=== PATIENT | male | born 1955 | race Caucasian/White ===

== ENCOUNTER 2017-01-19 02:43 | Emergency (ER) | payer MEDICARE ==
[~2017-01-19] VITALS: Ht 210.8 cm; Wt 118.2 kg
[~2017-01-19 02:43] MED LIST: ALLOPURINOL100 MG PO; ATENOLOL25 MG PO; CEFTIN500 MG PO; CLONAZEPAM1 MG PO; COUMADIN5 MG PO; DIGOXIN0.25 MG PO; DOXYCYC MONO100 M1 PO; FLEXERIL OR; IPRATROPIU0.5 MG/3 M NEB; KEFLEX500 MG PO; LEVAQUIN750 MG PO; MEDDOSEPAK PO; METHADONE10 M1 PO; METHADOSE10 M1 PO; METO25TAB PO; METO50TA52 PO; NEBULIZE1 IN; NORCO1 TAB PO; PENICILLN VK500 MG PO; PREDNISONE10 MG PO; ULTRAM50 M1 PO; ZOLOFT50 MG PO
[2017-01-19] MEDS ORDERED: PLAVIX75 MG PO (03:02)
[2017-01-19] MEDS ORDERED: KEFLEX500 MG PO (03:02)
[2017-01-19] MEDS ORDERED: WARFARIN SODIU2.5 MG PO (03:02)
[2017-01-19] MEDS ORDERED: VITAMI16 PO (03:04)
[2017-01-19] MEDS ORDERED: B COMPLETE PO (03:05)
[2017-01-19] MEDS ORDERED: MAGNESIUM500 MG PO (03:05)
[2017-01-19] MEDS ORDERED: PRENATAL1 TA1 PO (03:06)
[2017-01-19] MEDS ORDERED: PERCOCET1 TA4 PO (03:07)
[2017-01-19 04:08] LABS: HEMATOCRIT 33.1 % (39.0-50.0); HEMOGLOBIN 10.1 g/dl (14.0-18.0); IMMATURE GRANULOCYTES 1.4 % (0.0-1.0); MEAN CELL VOLUME 86.6 fL CALC (80.0-100.0); MEAN CORPUSCULAR HGB 26.4 pG CALC (26.0-32.0); MEAN CORPUSCULAR HGB CONC 30.5 g/L CALC (32.0-36.0); NEUT# 7.65 thou/uL (1.82-7.42); RED BLOOD COUNT 3.82 mill/uL (4.70-6.10); RED CELL DISTRI WIDTH 17.2 % (11.5-15.5)
[2017-01-19 04:25] LABS: ALBUMIN 3.3 g/dL (3.2-5.0); ALKALINE PHOSPHATASE 161 u/l (38-126); ANION GAP 15 (6-22 (CALC)); BILIRUBIN, TOTAL 0.6 mg/dL (0.0-1.4); BUN 17 mg/dL (9-20); BUN/CREATININE RATIO 17 (12-20 (CALC)); CALCIUM 8.9 mg/dL (8.4-10.2); CARBON DIOXIDE 25 mmol/l (22-30); CHLORIDE 103 mmol/l (95-108); GFR > 60 ML/MIN (>=60 (CALC)); GFR FOR AFR.AMER. > 60 ML/MIN (>=60 (CALC)); GLUCOSE 104 mg/dL (75-110); INTERNATIONAL NORMALIZED RATIO 1.2 RATIO (0.7-1.3); PROTHROMBIN TIME 13.4 SECONDS (9.0-12.5); SGOT/AST 25 u/l (17-59); SGPT/ALT 23 u/l (21-72); SODIUM 139 mmol/l (137-146); TOTAL PROTEIN 7.7 g/dL (6.3-8.2)
[2017-01-19 05:28] VITALS: BP 134/63
== END 2017-01-19 05:27 | disposition home or self-care (01) ==
LOC: ED 02:43
PROVIDERS: Emergency Medicine
DX: I96 Gangrene, not elsewhere classified (principal); I48.91 Unspecified atrial fibrillation; I42.9 Cardiomyopathy, unspecified; M19.90 Unspecified osteoarthritis, unspecified site; M10.9 Gout, unspecified; G89.29 Other chronic pain; M54.9 Dorsalgia, unspecified; I73.9 Peripheral vascular disease, unspecified; Z79.01 Long term (current) use of anticoagulants; S91.101A Unspecified open wound of right great toe without damage to nail, initial encounter; S91.301A Unspecified open wound, right foot, initial encounter; X58.XXXA Exposure to other specified factors, initial encounter